=== PATIENT | male | born 1935 | race Caucasian/White ===

== ENCOUNTER → 2017-10-04 | Outpatient (CLI) | payer OTHER, MEDICAID ==
[2015-08-27 10:34] VITALS: BP 126/68
== END ==
LOC: LAB 13:42
PROVIDERS: ATTEND Obstetrics & Gynecology Obstetrics
DX: T83.89XA Other specified complication of genitourinary prosthetic devices, implants and grafts, initial encounter (principal); X58.XXXA Exposure to other specified factors, initial encounter; B96.4 Proteus (mirabilis) (morganii) as the cause of diseases classified elsewhere
CPT/HCPCS: 87070; 87075; 87077; 87186; 87205

== ENCOUNTER → 2017-11-26 | Outpatient (CLI) | payer OTHER, MEDICAID ==
[2017-10-18 23:56] VITALS: BP 142/75
--- NOTE | 2017-11-26 13:55 | US ---
History: Follow-up of abdominal aortic aneurysm Study: Ultrasound of the abdominal aorta Comparison: November 28, 2016 Findings: There is no significant change. The abdominal aorta measures up to 3.[address] and 4.15 cm maximum transverse diameter. There is diffuse atherosclerotic calcification and there is prominent mural thrombus measuring 1.4 cm ventrally. There is also mural thrombus right laterally . 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 Maximum AP diameter is approximately 3.5 cm. Reported By:
== END ==
LOC: RAD 09:15
PROVIDERS: ATTEND Obstetrics & Gynecology Obstetrics
DX: I71.4 Abdominal aortic aneurysm, without rupture (principal)
CPT/HCPCS: 76770